=== PATIENT | male | born 1975 ===

== ENCOUNTER 2017-11-03 19:40 | Emergency (ER) | payer SELFPAY, OTHER ==
[2017-11-03] MEDS: LORAZEPAM 2 MG INJ IM (20:09)
[2017-11-04 03:21] LABS: BARBITURATES Negative (NEGATIVE); BENZODIAZEPINES Negative (NEGATIVE); CANNABINOIDS Negative (NEGATIVE); COCAINE Negative (NEGATIVE); OPIATES Negative (NEGATIVE)
[2017-11-04 03:34] LABS: AMPHETAMINE/METHAMPHETAMINE POSITIVE (NEGATIVE)
== END 2017-11-04 12:43 | disposition home or self-care (01) ==
LOC: E/R 19:40
DX: F15.10 Other stimulant abuse, uncomplicated (principal); R40.2142 Coma scale, eyes open, spontaneous, at arrival to emergency department; R40.2222 Coma scale, best verbal response, incomprehensible words, at arrival to emergency department; R40.2362 Coma scale, best motor response, obeys commands, at arrival to emergency department
CPT/HCPCS: 80307; 96372; 99284-25